=== PATIENT | male | born 1965 | race Caucasian/White ===

== ENCOUNTER 2023-05-24 17:59 | Emergency (ER) | payer OTHER, SELFPAY ==
[2023-05-24 18:20] VITALS: BP 107/76; PULSE 86; RESP 18; TEMP 36.1; O2SAT 93
--- NOTE | 2023-05-24 18:24 | ED.GENADULT ---
HPI - General Adult General Time Seen by Provider: 18:24 Date Seen: 05/24/23 Chief complaint: Back Injury/Pain Stated complaint: Lower R side/back pain Time Seen by Provider: 05/24/23 18:10 Source: patient and RN notes reviewed Mode of arrival: ambulatory Limitations: no limitations History of Present Illness HPI narrative: 57-year-old male who comes in complaining of right-sided back pain. He he notes this is been going on a couple of days and does not know of any definite injury although notes he had a straddle type injury the day before his pain started. He complains of the right low back hurting and radiating to the right lower quadrant, also has noted some difficulty urinating. Patient notes that he was seen at an outside emergency number for this couple days ago, reviewed notes from [facility] on May 21 at which time patient had CT scan without contrast that did not demonstrate any acute abnormalities, also had labs demonstrated normal basic metabolic panel, normal CBC with no leukocytosis, trace hematuria. Patient re-presented today with continued pain. Says he takes tramadol and oxycodone daily for chronic pain. Related Data Home Medications Medication Instructions Recorded Confirmed albuterol sulfate 90 mcg/actuation inhalation 05/24/23 aerosol inhaler (Ventolin HFA) bupropion HCl 150 mg 24 hr tablet, 150 mg PO DAILY 05/24/23 05/24/23 extended release cyclobenzaprine 10 mg tablet 10 mg PO BID PRN 05/24/23 05/24/23 dextroamphetamine-amphetamine 20 1 tab PO 3XD 05/24/23 05/24/23 mg tablet lamotrigine 100 mg tablet 100 mg PO DAILY 05/24/23 05/24/23 oxycodone 5 mg tablet 5 mg PO BID PRN 05/24/23 05/24/23 tramadol 50 mg tablet 50 mg PO 3XD PRN 05/24/23 05/24/23 Previous Rx's Medication Instructions Recorded gabapentin 300 mg capsule 300 mg PO TID #30 caps 05/24/23 ketorolac 10 mg tablet 10 mg PO Q6H PRN pain 5 days #20 05/24/23 tabs prednisone 10 mg tablets in a dose See Rx Instructions PO .COMPLEX 05/24/23 pack #21 ea Allergies Allergy/AdvReac Type Severity Reaction Status Date / Time No Known Drug Allergies Allergy Verified 05/24/23 18:20 PFSH PFS Social History Smoking Status: Unknown if ever smoked Non-prescribed substance use: marijuana (any form), crack/cocaine and amphetamines/methamphetamines Exam Narrative: Exam Narrative: General: Well-developed and well-nourished, no acute distress Head: Atraumatic and normocephalic Eyes: Pupils are equal reactive, extraocular motions intact, conjunctiva clear ENT: External nose and ears are normal, posterior pharynx without erythema or exudate Neck: No midline cervical tenderness, full spontaneous range of motion the neck, trachea midline, no adenopathy Heart: Regular rate and rhythm no murmurs or thrills Lungs: Clear to auscultation bilaterally without wheezes or crackles Abdomen: Soft, nontender, nondistended with active bowel sounds Musculoskeletal: Mild right low lumbar tenderness to palpation, no right lower quadrant tenderness, pain with active straight leg raise Neurologic: Awake, alert, and oriented x3, no gross focal neurologic deficits, cranial nerves intact as tested Psych: Mood and affect are appropriate Skin: No rashes Const: Vital Signs, click to edit/add: Vital Signs - 24 hr 05/24/23 18:20 Temperature 96.9 F L Pulse Rate [Right Pulse Oximeter] 86 Respiratory Rate 18 Blood Pressure [Ri ght Upper Arm] 107/76 Pulse Oximetry 93 Oxygen Delivery Me thod Room Air Course Course Hospital Course: Patient seen and examined, prior records are reviewed. Patient presents today with right-sided back pain radiating in the right lower quadrant, also some urinary hesitancy but able to urinate. Does not note gross blood in the urine, no bowel or bladder incontinence and no saddle anesthesia to suggest cauda equinus syndrome. Consider ureteral stone but recent CT scan at outside facility with no stones or hydroureter noted. Consider acute appendicitis or atypical retrocecal appendix but again no right lower quadrant tenderness and recent negative noncontrast CT scan. Labs are ordered a repeat CT scan with contrast will be performed, Toradol ordered for pain. Reevaluation(s) Time of Reevaluation #1: 19:49 Reevaluation #1: Labs independently interpreted by me with trace hematuria. CT scan of the abdomen and pelvis demonstrates large volume of stool in the ascending colon , gallbladder is somewhat distended. Time of Reevaluation #2: 20:15 Reevaluation #2: Reviewed radiology interpretation of CT scan which agrees with my initial interpretation. Reviewed labs which demonstrate normal CBC, reassuring basic panel. I did personally review the [place] provider database for the patient which shows most recent oxycodone fill May 16 for 60 tablets, prior to that April 16 for 60 tablets, also tramadol 90 tablets filled on May 14. Patient recheck, discussed that as he has gone through his 30 day supply of oxycodone in a days, I would not given refills of this. He can take gabapentin which will be prescribed to help with pain and can speak to his primary prescriber for further refills. Vital Signs Vital signs: Initial Vital Signs Temperature 96.9 F L 05/24/23 18:20 Temperature Source Temporal Artery Scan 05/24/23 18:20 Pulse Rate 86 05/24/23 18:20 Respiratory Rate 18 05/24/23 18:20 Blood Pressure 107/76 05/24/23 18:20 Blood Pressure Mean 86 05/24/23 18:20 Blood Pressure Position Sitting 05/24/23 18:20 Pulse Oximetry 93 05/24/23 18:20 Oxygen Delivery Method Room Air 05/24/23 18:20 Vital Signs Temperature 96.9 F L 05/24/23 18:20 Pulse Rate 86 05/24/23 18:20 Respiratory Rate 18 05/24/23 18:20 Blood Pressure 107/76 05/24/23 18:20 Pulse Oximetry 93 05/24/23 18:20 Oxygen Delivery Method Room Air 05/24/23 18:20 Temperature 96.9 F L 05/24/23 18:20 Pulse Rate 86 05/24/23 18:20 Respiratory Rate 18 05/24/23 18:20 Blood Pressure 107/76 05/24/23 18:20 Pulse Oximetry 93 05/24/23 18:20 Oxygen Delivery Method Room Air 05/24/23 18:20 Medical Decision Making Lab Data Labs: Lab Results 05/24/23 05/24/23 05/24/23 Range/Units 19:05 19:51 Unknown WBC 6.84 (4.50-11.00) K/uL RBC 4.37 (4.30-5.90) m/uL Hgb 13.0 L (13.5-17.5) gm/dL Hct 40.2 (37.0-53.0) % MCV 92 (80-100) fL MCH 30 (26-34) pg MCHC 32 (32-36) gm/dL RDW Coeff of Fito 13.1 (11.5-15.5) % Plt Count 164 (140-440) K/uL Neut % (Auto) 73.6 H (42.0-72.0) % Lymph % (Auto) 17.1 L (20-44) % [place] % (Auto) 7.6 (0.0-11.0) % Eos % (Auto) 1.5 (0.0-7.0) % Baso % (Auto) 0.1 (0.0-3.0) % Neut # (Auto) 5.00 (1.7-7.0) K/uL Lymph # (Auto) 1.20 (0.90-2.90) K/uL [place] # (Auto) 0.50 (0.00-0.90) K/UL Eos # (Auto) 0.10 (0.00-0.50) K/uL Baso # (Auto) 0.01 (0.00-0.30) K/uL Abs Immat Gran (auto) 0.01 (0.00-0.30) K/uL Imm/Tot Granulo (auto) 0.1 % Sodium 134 L (135-149) mmol/L Potassium 3.9 (3.6-5.1) mmol/L Chloride 99 (96-114) mmol/L Carbon Dioxide 32 (20-32) mmol/L Anion Gap 3 L (7-15) mEq/L BUN 13 (7-30) mg/dL Creatinine 1.0 (0.5-1.5) mg/dL Estimated GFR 88 ml/min Glucose 101 (60-115) mg/dL Calcium 8.5 (8.4-10.6) mg/dL Total Bilirubin 0.8 (0.1-1.5) mg/dL Direct Bilirubin 0.1 (0.0-0.5) mg/dL AST 65 H (12-35) U/L ALT 33 (4-50) U/L Alkaline Phosphatase 61 (40-150) U/L Total Protein 6.6 (6.0-8.3) g/dL Albumin 3.7 (3.3-5.0) g/dL Urine Color Yellow (Yellow) Urine Appearance Clear (Clear) Urine pH 6.5 (5.0-8.5) Ur Specific [place] 1.015 (1.000-1.030) Urine Protein Negative (Negative) Urine Glucose (UA) Negative (Negative) Urine Ketones Negative (Negative) Urine Blood Trace-intact A (Negative) Urine Nitrite Negative (Negative) Urine Bilirubin Negative (Negative) Urine Urobilinogen 1.0 (0.2-1.0) Ur Leukocyte Esterase Negative (Negative) Urine RBC 0-2 (0-2) Urine WBC 0-2 (0-5) Ur Squamous Epith Cells Few (None-Few) Urine Bacteria None (None) Lab Acknowledgement Test Added Discharge Plan Discharge Clinical Impression: Low back pain Patient Disposition: Home, Self-Care Condition: Improved Instructions: Acute Low Back Pain (ED) Activity Level: Activity as Tolerated Discharge Diet: Regular Prescriptions: New gabapentin 300 mg capsule 300 mg PO TID Qty: 30 0RF prednisone 10 mg tablets,dose pack See Rx Instructions .ROUTE .COMPLEX Qty: 21 0RF Rx Instructions: orally per package directions ketorolac 10 mg tablet 10 mg PO Q6H PRN (Reason: pain) 5 Days Qty: 20 0RF No Action cyclobenzaprine 10 mg tablet 10 mg PO BID PRN tramadol 50 mg tablet 50 mg PO 3XD PRN dextroamphetamine-amphetamine 20 mg tablet 1 tab PO 3XD albuterol sulfate [Ventolin HFA] 90 mcg/actuation HFA aerosol inhaler inhalation lamotrigine 100 mg tablet 100 mg PO DAILY oxycodone 5 mg tablet 5 mg PO BID PRN bupropion HCl 150 mg tablet extended release 24 hr 150 mg PO DAILY Stand Alone Forms: My[facility] Info Instructions
--- NOTE | 2023-05-24 18:47 | CRLHL7_ITS ---
For Patients: As a result of the Century Cures Act, medical imaging exams and procedure reports are released immediately into your electronic medical record. You may view this report before your referring provider. If you have questions, please contact your health care provider. Indication: Right lower quadrant pain, straddle injury Technique: CT abdomen and pelvis IV contrast Please note that all CT scans at this facility use dose modulation, iterative reconstruction, and/or weight-based dosing when appropriate to reduce radiation dose to as low as reasonably achievable. Comparison: None Findings: Bibasilar atelectasis. Normal heart size. No pericardial effusion. Normal liver size and contour. Focal lesions. Hepatic veins under opacified. Portal veins appear patent. Gallbladder unremarkable. No biliary dilatation. Adrenal glands, kidneys, spleen pancreas, stomach and duodenum unremarkable. Severe atherosclerotic disease of the abdominal aorta. Normal course and caliber of the abdominal aorta and the IVC. The aortic side branches and renal veins appear patent. No lymphadenopathy. Bladder and prostate are unremarkable. Status post right orchiectomy. No bowel obstruction. No bowel wall thickening. Appendix normal. No free fluid. No retroperitoneal hematoma or lymphadenopathy. No perineal hematoma for contusion. No acute osseous abnormality. Tiny nonspecific sclerotic lesions within the right femur and pelvis which are likely benign. Impression: No etiology identified for patient`s right lower quadrant pain. Please note that all CT scans at this facility use dose modulation, iterative reconstruction, and/or weight-based dosing when appropriate to reduce radiation dose to as low as reasonably achievable. Dictated by Javed Ji MD @ 05/24/2023 7:57:32 PM (Electronically Signed)
[2023-05-24 18:57] LABS: Appearance Urine Clear (Clear); Bilirubin Urine Negative (Negative); Blood Urine Trace-intact (Negative); Color Urine Yellow (Yellow); Glucose Urine Negative (Negative); Ketones Urine Negative (Negative); Leukocyte Esterase Urine Negative (Negative); Nitrite Urine Negative (Negative); Protein Urine Negative (Negative); Specific Gravity Urine 1.015 (1.000-1.030); pH Urine 6.5 (5.0-8.5)
[2023-05-24] MEDS: KETOROLAC 15 MG/ML inj IVP (19:05)
--- NOTE | 2023-05-24 19:05 | ED.NURSE ---
Pt requested scientific writer shave the hair on his arm before applying tegaderm to secure IV. Poultice Machine Operator shaved area of hair on pt's L arm in AC area large enough to accommodate tegaderm.
[2023-05-24 19:27] LABS: RBC Urine 0-2 (0-2); Squamous Epithelial Cell Urine Few (None-Few); WBC Urine 0-2 (0-5)
[2023-05-24 19:30] LABS: Basophils Absolute Auto 0.01 K/uL (0.00-0.30); Basophils Percent Auto 0.1 % (0.0-3.0); Eosinophils Percent Auto 1.5 % (0.0-7.0); Hematocrit 40.2 % (37.0-53.0); Immature Granulocytes Abs Auto 0.01 K/uL (0.00-0.30); Immature Granulocytes Pct Auto 0.1 %; Lymphocytes Percent Auto 17.1 % (20-44); Mean Corpuscular HGB Conc 32 gm/dL (32-36); Mean Corpuscular Hemoglobin 30 pg (26-34); Mean Corpuscular Volume 92 fL (80-100); Monocytes Percent Auto 7.6 % (0.0-11.0); Neutrophils Percent Auto 73.6 % (42.0-72.0); Platelet Count* 164 K/uL (140-440); RDW Coefficient of Variation % 13.1 % (11.5-15.5); Red Blood Count 4.37 m/uL (4.30-5.90); White Blood Count* 6.84 K/uL (4.50-11.00)
[2023-05-24 19:49] LABS: Slide Review Reflex No
[2023-05-24 19:55] LABS: Chloride* 99 mmol/L (96-114); Potassium* 3.9 mmol/L (3.6-5.1); Sodium* 134 mmol/L (135-149)
[2023-05-24 19:57] LABS: Estimated Glomerular Filt Rate 88 ml/min
[2023-05-24 19:58] LABS: Anion Gap 3 mEq/L (7-15); Blood Urea Nitrogen* 13 mg/dL (7-30); Calcium* 8.5 mg/dL (8.4-10.6); Carbon Dioxide* 32 mmol/L (20-32); Glucose* 101 mg/dL (60-115)
[2023-05-24 20:08] LABS: Albumin* 3.7 g/dL (3.3-5.0)
[2023-05-24 20:10] LABS: Bilirubin Direct* 0.1 mg/dL (0.0-0.5); Bilirubin Total* 0.8 mg/dL (0.1-1.5); Total Protein* 6.6 g/dL (6.0-8.3)
[2023-05-24 20:11] LABS: Alanine Aminotransferase* 33 U/L (4-50); Alkaline Phosphatase* 61 U/L (40-150); Aspartate Amino Transferase* 65 U/L (12-35)
[2023-05-24] MEDS: dexAMETHasone 4 MG/ML VIAL 10 MG IV (20:37)
[2023-05-24 20:51] VITALS: BP 108/52; PULSE 72; RESP 16; O2SAT 95
[2023-05-24] MEDS: GABAPENTIN 300 MG CAPSULE PO (21:02)
--- NOTE | 2023-05-24 22:21 | ED.NURSE ---
Patient called and stated that the pharmacy that his discharge medications were sent to is closed all weekend. Requesting that his meds be sent to [facility].
== END 2023-05-24 21:03 | disposition home or self-care (01) ==
PROVIDERS: Emergency Provider Family Medicine
DX: M54.50 Low back pain, unspecified (principal)
CPT/HCPCS: 36415; 74177; 80048; 80076; 81001; 85025; 96374; 96375; 99283; 99284; A9270; J1100; J1885; Q9967